=== PATIENT | male | born 1990 | race African-American/Black ===

== ENCOUNTER 2018-05-31 15:44 | Emergency (ER) | payer SELFPAY ==
[~2018-05-31] VITALS: Ht 162.6 cm; Wt 59.0 kg
[2018-05-31 15:47] VITALS: BP 116/77
[2018-05-31] MEDS ORDERED: IBUPROFEN 600 MG TABLET PO ONE ×2 (16:04→16:30)
== END 2018-05-31 16:14 | disposition home or self-care (01) ==
LOC: ER 15:48
DX: S00.81XA Abrasion of other part of head, initial encounter (principal); W22.01XA Walked into wall, initial encounter; Y93.89 Activity, other specified; Y92.89 Other specified places as the place of occurrence of the external cause; Y99.8 Other external cause status
CPT/HCPCS: 99283; A4606; A6402; Z7610